=== PATIENT | female | born 1945 | race Caucasian/White ===

== ENCOUNTER 2020-02-16 09:00 | Outpatient (RCR) | payer MEDICARE, SELFPAY ==
--- NOTE | 2019-12-29 15:14 | MHC.PT.EP ---
[facility] [place] Office [place] Office [place] [facility] [address] Rhianna Lange [address] [phone] F: [phone] F: [phone] F: [phone] F: [phone] Physical Therapy Plan of Care Date of Evaluation: 12/29/19 Date of Surgery: Diagnosis: abnormalities of gait and mobility Assessment: 74 y/o F referred to PT with gait abnormality. Of note, she reports falling though second floor ceiling 10 years ago resulting in B calcaneual fractures, back pain, and concussion in which she was not treated. She reports balance and possible memory problems since concussion and sometimes dizziness with turning. She also reports L knee bursitis/pain that is effecting her balance. Currently she has difficulty with walking, stairs, and turning. She just moved here from [place] to be closer to her sister. Examination shows decreased L LE strength, decreased L HS length, impaired static balance with eyes closed and on foam, impaired dynamic balance especially with head turns and 360 turns, and impaired functional mobility. Recommend PT 2x/week for 6 weeks to address impairments, implement HEP, and optimize functional mobility. POC to include LE strengthening, HS/posterior chain stretching, balance training, and gait/stair/transfer training. Frequency and Duration: The patient will be seen 2x/week for 6 weeks Short Term Goals: 3 weeks: 1. Initiate HEP 2. Improve Static standing balance on airex to 30sec with minimal sway 3/3x 3. Improve L LE by one MMT grade Fdc Goals: 6 weeks: 1. I with HEP and self management of sx 2. Improve DGI to 20/24 3. Pt will ascend/descend stiars in step through pattern and one rail Treatment Plan: Modalities to reduce pain, spasms and effusion. Manual therapy to restore motion and function. Therapeutic exercise to improve strength and flexibility. Neuromuscular re-education for posture and balance. Therapeutic activities to return to functional activities of daily living. Please sign and return to therapist. Thank you for your referral.
--- NOTE | 2020-02-23 08:51 | MHC.PT.DC ---
[facility] [place] Office [place] Office [place] Office [address] Rhianna Lange [address] [phone] F: [phone] F: [phone] F: [phone] F: [phone] Physical Therapy Discharge Report Diagnosis: abnormalities of gait and mobility Date of Surgery: Date of Evaluation: 12/29/19 Date of Discharge: 02/23/2020 Treatments to Date: 9 Cancellations to Date: 3 No Shows to Date: 0 Discharge Status: Improved Function Independent with HEP Patient Elected to Stop Discharge Summary: Pt called to self discharge reporting she is ready for more aerobic activities. At time of last visit, she was making progress towards meeting goals with improved gait pattern with horizontal and vertical head turns. With turning while walking, patient with inconsistent response sometimes with poor gait pattern or LOB and other times gait WNL. D/c at this time due to patient request. Electronically signed by: Milla Soto DPT Please sign and return to therapist. Thank you for your referral.
== END 2020-02-23 08:52 | disposition other institution (70) ==
LOC: HO.PTCHIC 09:00
PROVIDERS: PCP Internal Medicine; Visit Provider Internal Medicine
DX: R26.89 Other abnormalities of gait and mobility (principal)
CPT/HCPCS: 97110; 97112; 97162; 97530

== ENCOUNTER 2020-02-17 09:08 | Outpatient (REF) | payer MEDICARE, SELFPAY ==
[2020-02-17 11:26] LABS: Hemoglobin 14.5 g/dl (12.0-16.0); Mean Corpuscular HGB Conc 32.2 g/dl (31.0-35.0); Mean Corpuscular Hemoglobin 30.7 pg (27.0-33.0); Mean Corpuscular Volume 95.1 fL (80-98); Mean Platelet Volume 10.5 fL (9.4-12.3); Platelet Count 184 X10*3/uL (160-400); Red Blood Count 4.73 X10*6/uL (4.20-5.50); Red Cell Distribution Width 12.9 % (11.0-16.0); White Blood Count 5.6 X10*3/uL (4.8-10.8)
[2020-02-17 11:38] LABS: Alanine Aminotransferase 11 U/L (0-31); Albumin Level 4.3 g/dL (3.5-5.0); Alkaline Phosphatase 75 U/L (39-117); Anion Gap 12 (12-20); Aspartate Amino Transferase 17 U/L (5-31); Bilirubin Total 0.5 mg/dL (0.0-1.0); Blood Urea Nitrogen 16 mg/dL (9-16); Calcium 9.2 mg/dL (8.4-10.2); Carbon Dioxide 31 mmol/L (22-29); Chloride 102 mmol/L (96-108); Cholesterol 162 mg/dL; Estimated Glomerular Filt Rate > 60; Glucose Fasting 101 mg/dL (60-99); HDL Cholesterol 58 mg/dL; LDL Cholesterol Calculated 78 mg/dl; Potassium 4.3 mmol/l (3.3-5.1); Sodium 141 mmol/L (135-145); Total Protein 7.2 g/dL (6.5-8.0); Triglycerides 130 mg/dL
[2020-02-17 12:00] LABS: Vitamin D 25-OH Total 28.5 ng/mL (>30)
[2020-02-17 12:11] LABS: Vitamin B12 696 pg/mL (200-900)
== END 2020-02-17 09:09 | disposition home or self-care (01) ==
LOC: HO.HMGCLDS 09:08
PROVIDERS: PCP Internal Medicine; Visit Provider Internal Medicine
DX: F41.9 Anxiety disorder, unspecified (principal); R26.89 Other abnormalities of gait and mobility; E78.5 Hyperlipidemia, unspecified
CPT/HCPCS: 36415; 80053; 80061; 82306; 82607; 82746; 84443; 85027

== ENCOUNTER 2020-09-22 13:00 | Outpatient (REF) | payer MEDICARE, SELFPAY ==
--- NOTE | ~2020-09-22 | MM_ITS ---
EXAMINATION: MM SCREENING DIGITAL BREAST TOMOSYNTHESIS, BILATERAL CLINICAL INFORMATION: Screening. Asymptomatic. Prior [id number] imaging is currently unavailable. The lifetime risk of breast cancer based on the Tyrer-Cuzick Model is 4%. COMPARISON: None. Radiology department staff will attempt to retrieve prior [id number] mammography to allow for comparison in an addendum report. TECHNIQUE: Digital breast tomosynthesis is performed in both the craniocaudal and mediolateral oblique views along with computer-aided detection (CAD). Synthesized 2D images are generated from the tomosynthesis. FINDINGS: There are scattered areas of fibroglandular density (ACR BI-RADS breast composition Category b). Breast tissue composition borders on heterogeneously dense. There is a biopsy clip marker posterior upper outer right breast. Neither breast shows significant mass or architectural abnormality. There are no abnormal calcifications. The axilla and skin contours are unremarkable. MM/MM tomosynthesis screening BI IMPRESSION: No mammographic evidence of malignancy. ASSESSMENT: BI-RADS 1: Negative RECOMMENDATION: Routine annual mammography screening. This patient's information was entered into a reminder system with a target due date for their next mammogram.
== END 2020-09-22 13:01 | disposition home or self-care (01) ==
LOC: HO.MAMMO 13:00
PROVIDERS: PCP Internal Medicine; Visit Provider Internal Medicine
DX: Z12.31 Encounter for screening mammogram for malignant neoplasm of breast (principal)
CPT/HCPCS: 77063; 77067

== ENCOUNTER 2020-10-12 13:00 | Outpatient (RCR) | payer MEDICARE, SELFPAY ==
--- NOTE | 2020-09-07 17:50 | MHC.PT.EP ---
[place] Office [place] Office [place] Office [address] Rhianna Lange [address] [phone] F: [phone] F: [phone] F: [phone] F: [phone] Physical Therapy Plan of Care Date of Evaluation: Date of Surgery: Diagnosis: B LE weakness. Assessment: Pt is a 74 y/o female referred to PT for eval and treat of B LE weakness resulting in decreased tolerance for negotiating stairs, walking for duration, performing squatting activities, and performing heavy HH chores secondary to decreased LE and core strength as well as general decondition. Pt is deemed an appropriate candidate to receive skilled PT in order to address her physical limitations to improve her functional ability. Frequency and Duration: The patient will be seen 2 x / wk x 5 wks. Short Term Goals: Initiate HEP. [employer] Supervisor Goals: I with HEP. Pt will report able to negotiate 10 stairs with at most a little bit of difficulty; initial: unable or with extreme difficulty. Pt will be able to walk 1 mile with at most a little bit of difficulty; initial: unable or with extreme difficulty. improve B knee extension MMT to > 4+/5; initial: 4/5. Treatment Plan: Modalities to reduce pain, spasms and effusion. Manual therapy to restore motion and function. Therapeutic exercise to improve strength and flexibility. Neuromuscular re-education for posture and balance. Therapeutic activities to return to functional activities of daily living. Electronically signed by: Mark Anthony Sumner PT. Please sign and return to therapist. Thank you for your referral.
--- NOTE | 2020-11-03 09:30 | MHC.PT.DC ---
[facility] [place] [facility] [place] Office [place] Office [address] Rhianna Lange [address] [phone] F: [phone] F: [phone] F: [phone] F: [phone] Physical Therapy Discharge Report Diagnosis: B LE weakness. Date of Surgery: Date of Evaluation: 09/07/20 Date of Discharge: 11/03/20 Treatments to Date: 7 Cancellations to Date: No Shows to Date: Discharge Status: Achieved Goals Improved Function Independent with HEP Discharge Summary: 10/12: No adverse effects. Pt gabriela all standing activities w/ 4lb ankle weights using parallel bar. fatigued WNL following theray. cont. to progress standing activities w/o the use of parallel bar. continue POC becoming I with home program. 09/23: good gabriela for step ups, can progress to 8 step ups in next visit. Good gabriela for activities, some rests required though good overall gabriela. No adverse effects. Ed on consistence for effective strengthening. Same report. Electronically signed by: Mark Anthony Sumner PT. Please sign and return to therapist. Thank you for your referral.
== END 2020-11-03 09:32 | disposition home or self-care (01) ==
LOC: HO.PTCHIC 13:00
PROVIDERS: PCP Internal Medicine; Visit Provider Internal Medicine
DX: R29.898 Other symptoms and signs involving the musculoskeletal system (principal)
CPT/HCPCS: 97110; 97112; 97150; 97161

== ENCOUNTER 2022-10-14 10:35 | Outpatient (AMB) | payer MEDICARE, SELFPAY ==
[2022-10-14 11:33] VITALS: BP 102/62; PULSE 80; TEMP 37; O2SAT 99; BMI 24.7
--- NOTE | 2022-10-14 11:33 | MHC.OFFWIV ---
Intake Vital Signs 10/14/22 11:33 Height 5 ft 2 in Weight 135 lb 4 oz BMI 24.7 BP 102/62 Blood Pressure Location Lt brachial Position Sitting Pulse 80 Pulse Source Pulse Oximeter Temp 98.6 F Temp Source Oral Pulse Oximetry (%) 99 Oxygen Delivery Method Room Air Intake Visit Reasons: Lt side neck pain Intake Note: Patient is here with left sided neck pain that goes into her shoulder since yesterday. Patient Tobacco Use Status: Never used Tobacco Allergies loratadine [Claritin] Allergy (Unknown, Verified 10/14/22 11:35) Unknown claritin Allergy (Unknown, Uncoded 10/14/22 11:35) Unknown Do you need a note to return to daycare/school/sports/work: No HPI HPI Comments History of Present Illness Details This is a 76-year-old female who presents to the office today for sick visit. Patient complaining of left-sided neck and shoulder pain x1 day. Patient denies any known trauma or injury but states that she woke up with pain yesterday morning. She denies any numbness/weakness/paresthesias of her left upper extremity. She denies any neck stiffness. She states she has decreased range of motion of the neck but mostly due to pain. She denies any fevers or chills. She is otherwise feeling well. [facility] Medical History (Updated 08/13/20 @ 11:41 by Brittney Guerra MD) Anxiety Balance disorder Bilateral leg weakness Concussion Depression Dysplastic nevus Hyperlipidemia Left knee pain Mammogram normal Normal colonoscopy Uterine carcinoma Weight loss Surgical History H/O colonoscopy H/O: hysterectomy S/P bilateral foot surgery Family History Father History of cancer Mother No problems noted. Social History Household Members Other:: lives alone, , has 1 sister in [place] Housing: Apartment Patient Tobacco Use Status: Never used Tobacco e-Cigarette/Vaping Use: Never Used Second Hand Smoke Exposure: No service: No Current occupational status: retired Current occupational exposures/hazards: No Review of Systems Const All systems reviewed & are unremarkable except as noted in HPI and below Reports no additional complaints Eyes Reports no additional complaints ENT Reports no additional complaints Card Reports no additional complaints Resp Reports no additional complaints GI Reports no additional complaints Reports no additional complaints Musc Reports no additional complaints Skin/Breast Reports system reviewed and no additional complaints, except as documented Neuro Reports no additional complaints Psych Reports no additional complaints Endo Reports no additional complaints Giancarlo/Lymph Reports no additional complaints Aller/Immun Reports no additional complaints Physical Exam Vital Signs: Last Vital Signs Temp 98.6 F 10/14/22 11:33 Pulse 80 10/14/22 11:33 BP 102/62 10/14/22 11:33 Pulse Ox 99 10/14/22 11:33 Oxygen Delivery Method Room Air 10/14/22 11:33 BMI result Body Mass Index 24.7 Const General: cooperative, healthy appearing, no acute distress and well developed Orientation/consciousness: patient oriented x3 HEENT Head: Yes normal to inspection Ears: hearing grossly normal bilaterally General nose exam: Normal external nose present Face and sinus: Yes normal facial exam Mouth: Normal oral and palatal mucosa present Eyes General: appearance normal, both eyes and all related structures Pupils: Equal, round and reactive pupils present EOM: EOMs intact bilaterally Neck Other: No midline or spinous process tenderness to palpation. No meningeal signs. No neck swelling. Mild tenderness to palpation and spasm of the cervical paraspinal musculature, mild tenderness to palpation of the trapezius muscle. Decreased rotation to the left of the neck due to pain. Full range of motion of the left shoulder. Resp Effort & Inspection: normal respiratory effort and no respiratory distress Auscultation: clear to auscultation bilaterally Cardio Rate: regular rate Rhythm: regular rhythm Heart sounds: no gallops, no murmurs and no rubs Peripheral pulses: Peripheral pulses 2+ throughout GI Inspection: No distended Palpation (GI): Soft to palpation and nontender Auscultation: normal bowel sounds Skin General skin exam: no rashes or lesions noted Neuro General: patient oriented x3 Cranial nerves: Yes CN's II-XII intact bilaterally and Yes Equal, round and reactive pupils present Gait exam (Neuro): Normal gait present Motor exam (neuro): 5/5 motor strength present throughout Extrem General: Yes normal to inspection, Yes full ROM and Yes no clubbing, cyanosis or edema Psych Appearance: grossly normal Mental Status: mental status grossly normal Assessment & Plan Assessment & Plan (1) Neck muscle spasm: Code(s): M62.838 - Other muscle spasm Plan: This is a 76-year-old female presenting with left-sided neck/shoulder pain. On physical examination, she has mild tenderness to palpation of the cervical paraspinal musculature and trapezius muscle as well as decreased range of motion with lateral rotation of the neck to the left. She has no meningeal signs. No numbness/weakness/paresthesias of left upper extremity to suggest cervical radiculopathy. No midline or spinous process tenderness to palpation of the cervical spine. Her vital signs are stable, her physical exam is otherwise benign, and she is overall nontoxic appearing. History and physical are most consistent with muscle spasm of the paraspinal musculature and trapezius. Recommend rest/activity modification, heat to the area, and acetaminophen/ibuprofen for pain management as long as patient has no medical contraindications. Patient prescribed lidocaine 5% patches as well as p.o. methocarbamol 500 mg every night at bedtime for muscle spasms. Patient was advised to follow-up here or proceed directly to the emergency room if she were to develop numbness/weakness/paresthesias of her lower extremity, neck stiffness, or fever/chills. Patient verbalizes her understanding and she is in agreement with the plan. Coding Level of Care Code Est Pt Level 3 (61268) Diagnoses Neck muscle spasm M62.838
== END 2022-10-14 11:51 | disposition home or self-care (01) ==
PROVIDERS: PCP Internal Medicine; Visit Provider Physician Assistant Medical
DX: M62.838 Other muscle spasm (principal)
CPT/HCPCS: 99213